=== PATIENT | male | born 1995 | race African-American/Black ===

== ENCOUNTER 2018-12-04 01:25 | Emergency (ER) | payer OTHER ==
[2018-12-04 01:44] VITALS: BP 159/88
[2018-12-04] MEDS ORDERED: DIPH/PERTUSS(ACELL)/TETANUS VAC/PF 0.5 ML SYR (>=10YO) IM ONE (01:45)
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
[2018-12-04] MEDS ORDERED: LIDOCAINE 1% INJ-PF (10 MG/ML) 30 ML SDV INJ ONE (02:20)
== END 2018-12-04 03:35 | disposition home or self-care (01) ==
LOC: ER 01:25
DX: S01.83XA Puncture wound without foreign body of other part of head, initial encounter (principal); W34.00XA Accidental discharge from unspecified firearms or gun, initial encounter
CPT/HCPCS: 70450; 90471; 90715; 99283